=== PATIENT | male | born 1960 | race Caucasian/White ===

== ENCOUNTER → 2024-02-24 | Outpatient (CLI) | payer MEDICAID, SELFPAY ==
--- NOTE | 2024-02-24 09:27 | US_ITS ---
STUDY: ABDOMINAL ULTRASOUND - RIGHT UPPER QUADRANT; ELASTOGRAPHY REASON FOR VISIT: Male, 63 years old. Hepatitis C. Cirrhosis. TECHNIQUE: Ultrasound evaluation of the right upper quadrant was performed with real-time and static olivas-scale imaging. Point quantification shear wave elastography was performed ([place]). TECHNICAL QUALITY: Adequate. COMPARISON: None. FINDINGS: Liver: The liver measures 15 cm. There is increased echogenicity consistent with fatty infiltration. The bile ducts are within normal limits. There is hepatic color flow. The direction of portal flow is hepatopetal. There is no demonstrated mass lesion. Median liver stiffness measured 13 kPa. Gallbladder: Normal distended gallbladder. The gallbladder wall measures 4 mm. There is a negative sonographic May''s sign. There is no pericholecystic fluid. There are multiple echogenic structures within the gallbladder, consistent with multiple gallstones. Common Bile Duct (C.B.D.): The common bile duct measures 4 mm. Pancreas: There is normal echogenicity of the visualized pancreas. There is no demonstrated pancreatic mass or cyst. Right Kidney: Normal size of the right kidney. The right kidney measures 11.4 cm x 6.2 cm x 5.3 cm. Normal renal cortex. The right cortex measures 1.6 cm. There is no demonstrated renal mass or cyst. There is no right hydronephrosis. IMPRESSION: 1. Liver stiffness measures 13 kPa compatible with F3-F4 (Moderate to severe liver fibrosis) Metavir score. Electronically Signed: Wilmar Pearson MD at 15:33 EDT , STUDY: ABDOMINAL ULTRASOUND - LEFT UPPER QUADRANT REASON FOR EXAM: Male, 63 years old. HEP C cirrhosis -- including spleen, NAFLD TECHNIQUE: Transabdominal ultrasound was performed with real-time and static olivas scale imaging. TECHNICAL QUALITY: Adequate. COMPARISON: None. FINDINGS: Spleen: Normal size of the spleen. The spleen measures 12.6 cm x 5.7 cm x 5.3 cm. US/ABD Limited w/ Elastography IMPRESSION: Normal left upper quadrant abdominal ultrasound examination. Electronically Signed: Wilmar Pearson MD at 15:33 EDT ,
== END | disposition home or self-care (01) ==
LOC: US 09:25
PROVIDERS: Referring Provider Internal Medicine; Visit Provider Internal Medicine
DX: K74.60 Unspecified cirrhosis of liver (principal); E66.01 Morbid (severe) obesity due to excess calories; B18.2 Chronic viral hepatitis C
CPT/HCPCS: 76705; 76981

== ENCOUNTER 2024-03-20 05:53 | Day surgery (SDC) | payer MEDICAID, SELFPAY ==
[2024-03-20] VITALS (8 sets, daily range): BP systolic 107–163; BP diastolic 70–87; PULSE 68–82; RESP 16; TEMP 36.2–36.8; O2SAT 92–98; BMI 34.1
[2024-03-20] MEDS: Lactated Ringers 1,000 ML 15 ML IV (06:22)
--- NOTE | 2024-03-20 06:37 | PRE.ANES_ITS ---
ASA Classification* ASA Classification ASA Classification: 3 Assessment & Plan Anesthesia* Anesthesia Assessment Anesthesia Assessment: Discussed sedation and/or anesthesia options, risks, benefits, and alternatives with patient/parents/legal guardian/POA. Questions invited. The patient/parents/legal guardian/POA seems to understand and agrees to proceed with anesthesia plan. Reviewed the physical assessment, medical history, allergy history and patient home medications list prior to surgery/procedure/anesthetic and documented any changes. Performed airway and anesthesia risk assessments. 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 When Was Last Pacemaker Check QUESTION #4 FULL TEXT: You/Your Family Experience fever (hyperthermia) with Anesthesia Last Oral Intake Last Oral intake: Last Oral Intake NPO since 22:00 03/20/24 06:14 Meds taken in AM with sips of water? 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 Female No 03/15/24 10:23 HX of Motion Sickness No 03/15/24 10:23 HX of N/V After Surgery No 03/15/24 10:23 Non-Smoker Yes 03/15/24 10:23 Duration of Surgery greater No 03/15/24 10:23 than 60 minutes Number of Risk Factors 1 03/15/24 10:23 PONV Score Low Risk 03/15/24 10:23 Height & Weight Height & Weight: Anesthesia: Height & Weight Height 5 ft 11 in 03/20/24 06:14 Weight: 111 kg 03/20/24 06:14 Body Mass Index (BMI) 34.1 03/20/24 06:14 Respiratory Assessment Respiratory Assessment - 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 Has anyone observed you stop No 03/15/24 10:23 breathing during sleep? STOP Results Negative 03/15/24 10:23 QUESTION #5 FULL TEXT : Do you snore loudly (louder than talking or can be heard through closed doors)? 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 Specify any problems Hx of Preganancy in last 3 N/A 03/15/24 10:23 Months Nurse Filling Out Transfusion NBUCHER 03/15/24 10:23 & Questions: Date: 03/15/24 03/15/24 10:23 Time: 10:24 03/15/24 10:23 Patient unable to answer at this time (ie. 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: /Reproductive Hx- dusting and brushing machine operator Hx Now No 03/15/24 10:23 Gestational Age (in weeks): EDC: Hx Hx Para Hx Section SAB Active Medications Active Medications: Current Medications Generic Name Dose Route Start Last Admin Trade Name Freq PRN Reason Stop Dose Admin Lactated Ringer's 1,000 mls @ 15 mls/hr 03/20/24 06:00 03/20/24 06:22 IV 15 mls/hr .Q48H IRENE Administration PFSH Medical History Loss of hearing No natural teeth Thyroid disease Arthritis Cirrhosis Migraine headache Hepatitis Leg cramps History of edema Former smoker Umbilical hernia Home Medications ?Medication ?Instructions ?Recorded ?Last Taken ?Type NK 03/15/24 Unknown History Allergy/AdvReac Type Severity Reaction Status Date / Time No Known Allergies Allergy Verified 03/20/24 06:12 Surgical History History of carpal tunnel surgery H/O inguinal hernia repair H/O left knee surgery Social History Smoking Status: Current every day smoker tobacco type: cigarettes Review of Systems (Anesthesia) ROS Narrative System reviewed and no additional complaints, except as documented.
--- NOTE | 2024-03-20 07:00 | IMM_PTH ---
PATIENT: CONRADO SHANKAR LOC: EN U#:[id number] AGE/SX: 63/M ROOM: RE03/20/[address]: Dr. Branden Velázquez DO : 1960 BED: DIS: 03/20/2024 SPEC #: [id number] RECD: 03/20/24 13:44 STATUS: STANLEY RESharron #: [id number] REMBERTO: 03/20/24 07:[address]: Branden Velázquez DEPT: IMMUNOHISTOCHEMISTRY RECD BY: Mehran Cesar ENTERED: 03/20/24 13:44 SP TYPE: IMMUNO OTHR DR: Dr. Westley Grossman DO Tissues: A - Gastric mucous membrane B - Esophagus, NOS Procedures: H Pylori (initial) PHYSICIAN & INSTITUTION [place] [id number] SPECIMEN INFORMATION: Tissue Source: A- Gastric cardia biopsy, B- Distal esophagus biopsy Clinical Info: Hepatic cirrhosis due to chronic hepatitis C infection, morbid obesity Specimen Number: [id number] A, B CPT code: 64876l6 METHODOLOGY: Deparaffinized sections of prefer/formalin-fixed tissue or PAP/DQ stained slides are incubated with monoclonal/polyclonal antibodies/oligonucleotide probes. Localization is made via biotin free immunoperoxidase method. Appropriate controls are performed and reacted as expected. Results on target cell population are indicated in the following table: RESULTS: ANTIBODY / CLONE RESULT Block A H Pylori (polyclonal) positive Block B H Pylori (polyclonal) positive These tests were developed and their performance characteristics determined by [facility]. They may not have been cleared or approved by the U.S. Food and Drug Administration. The FDA has determined that such clearance or approval is not necessary. The above immunohistochemical/dualISH markers are ordered and reviewed by the Pathologist. INTERPRETATION: A. Gastric cardia, biopsy: Positive for Helicobacter pylori organisms. B. Distal esophagus, biopsy: Positive for numerous Helicobacter pylori organisms. SUNNY/ 03/22/2024
--- NOTE | 2024-03-20 07:00 | EGD_PTH ---
PATIENT: CONRADO SHANKAR LOC: EN U#:[id number] AGE/SX: 63/M ROOM: RE03/20/[address]: Dr. Branden Velázquez DO : 1960 BED: DIS: 03/20/2024 SPEC #: [id number] RECD: 03/20/24 12:40 STATUS: STANLEY SUSAN #: [id number] REMBERTO: 03/20/24 07:[address]: Branden Velázquez DEPT: SURGICAL PATHOLOGY RECD BY: Brooke Lin ENTERED: 03/20/24 13:16 SP TYPE: EGD BIOPSY ROCIO DR: Dr. Westley Grossman DO Tissues: A - Gastric mucous membrane B - Esophagus, NOS Procedures: Special Stain Group I Surgery Specimen Level IV Alcian Blue/PAS (control) HEADER OPERATION: EGD with biopsies PRE-OP DIAGNOSIS: Hepatic cirrhosis due to chronic hepatitis C infection, morbid obesity TISSUE SUBMITTED: A- Gastric cardia biopsy, B- Distal esophagus biopsy MICROSCOPIC DIAGNOSIS A. Gastric cardia, biopsy: Moderate to marked chronic active gastritis. Focal intestinal metaplasia (goblet cell metaplasia). See comment. B. Distal esophagus, biopsy: A fragment of gastroesophageal mucosa with moderate to marked chronic inflammation and minimal acute inflammation. Intestinal metaplasia (goblet cell metaplasia) not identified. See comment. SUNNY/mr 03/21/2024 COMMENT A, B. The results of immunohistochemistry for Helicobacter pylori will be reported separately ([id number]). Alcian blue/PAS stain with matched control is used in the evaluation of the specimens. Case has been reviewed in consultation with Dr. Gillespie who concurs with the above diagnosis. IDC:AM MICROSCOPIC DESCRIPTION Slides are reviewed. GROSS DESCRIPTION A. Received in fixative is one container labeled with the patient's name and designated Gastric cardia biopsy. The specimen consists of two irregular fragments of light anderson soft tissue that in aggregate measure 0.6 x 0.3 x 0.1 cm. The specimen is totally submitted in one cassette. B. Received in fixative is one container labeled with the patient's name and designated Distal esophagus biopsy. The specimen consists of one irregular fragment of light anderson soft tissue that measures 0.3 x 0.3 x 0.1 cm. The specimen is totally submitted in one cassette. Kerry 03/20/2024 TC:2 CPT:78688r4,70289h5
--- NOTE | 2024-03-20 07:00 | PCM.HP.BLA ---
History and Physical Date of Admission: 03/20/24 Chief Complaint: Hep B Details: CONRADO SHANKAR, is a 63 M who presents to the office today for OV 02.11.24 F/U from hospital admit 02.04.24 for signs of inflammation, positive hepatitis C, hernia and cirrhosis of liver. Pt states he is feeling fine. Taking levothyroxine. Patient went to [place] outpatient on 02/04/2024 for left lower quadrant abdominal pain after moving heavy boxes. Patient was found abnormal LFT and found to have hep C positive. Patient was sent to the liver clinic. Patient has PCP. He had bilateral inguinal hernia repair in the past. He also had arthroscopy of left knee probably for torn meniscus. Patient denies history of right upper quadrant abdominal pain, jaundice, hematemesis, melena or encephalopathic symptoms. Patient stated he has hep C probably from blood transfusion he had in 1984. Patient history of occasional alcohol drink in the past but quit in September 1999. Patient also had history of smoking less than a pack started in teenage and quit in January 2022. Denies history of substance use. ROS Const Constitutional: No fatigue, fever(s), weakness or weight change ENT ENT: No difficulty swallowing Resp Respiratory: No shortness of breath or wheezing Cardio Cardiology: No chest pain at rest or dyspnea on exertion Gastro GI: No abdominal pain, belching, bloating, change in bowel habits, change in stool character, coffee ground emesis, constipation, cramping, diarrhea, heartburn, difficulty swallowing, feeling full early, excessive flatus, incontinent of stools, Vomiting blood/hematemesis, Blood in stool, loose stools, Black,tarry stools, nausea/dyspepsia, pain with swallowing, vomiting or other Genitourinary Male: No difficulty urinating or burning urination Musc Musculoskeletal: Positive for Arthritis; No joint pain Skin Skin: No yellowing of the eye or itchy eyes Neuro Neurology: No abnormal movements, behavioral changes, weakness or lack of coordination Psych Psychiatric: No anxiety, No behavioral changes and No depression Endo Endocrine: No fatigue or weight change Aller/Imm Allergy/Immunologic: No itchy eyes or wheezing Martin/Lymp Hematologic/Lymphatic: No easy bleeding or easy bruising Exam Const General: cooperative, no acute distress and well developed Nutritional Appearance: average body habitus Orientation: alert, awake and oriented x3 HENMT Head: normocephalic and atraumatic Nose: external nose normal Face and sinus: normal facial exam Mouth: moist mucous membranes Eyes Pupils: PERRL EOM: EOM intact bilaterally Neck Neck: normal visual inspection, no meningeal signs and trachea midline Carotids: no bruits Chest Chest palpation & inspection: normal inspection of the chest Resp Effort & Inspection: normal respiratory effort and symmetric chest movement Auscultation: Bilateral: Clear to Auscultation Cardio Palpation: normal PMI Rate: regular rate Rhythm: regular rhythm Heart Sounds: S1 normal and S2 normal Other: Systolic murmur present. GI Auscultation: normal bowel sounds Percussion: normal to percussion Palpation: soft, no hepatosplenomegaly and no guarding Other: No tenderness guarding or rigidity. No rebound tenderness. No shifting dullness or fluid thrill. Liver not enlarged. Spleen not palpable. General: bimanual renal exam normal bilaterally, bladder normal to inspection and bladder normal to palpation Musc Musculoskeletal: No joint tenderness, joint redness, joint warmth or decreased range of motion Thoracic/Lumbar Spine: thor and lumb spine abnorm to inspection Other: Scar raul of left knee arthroscopic surgery. Skin General: rashes and/or lesions noted, turgor normal and no erythema Wounds: wound noted Neuro General: patient alert, patient awake, patient oriented x3 and no focal motor deficits Speech: speech normal Motor: muscle tone normal throughout Extrem General: normal exam except as noted Other: Mild bilateral pitting ankle edema 1+ Psych Appearance: grossly normal Mood: congruent mood Affect: normal affect Attitude: cooperative Assessment and Plan Assessment and Plan (1) Hepatic cirrhosis due to chronic hepatitis C infection: Status: Chronic Plan: During workup in the [place] outpatient in January 2024, CT abdomen was done which shows no acute abnormality within the abdomen or pelvis but cirrhotic liver with findings suggestive of portal venous hypertension including dilated main portal vein and recannulization of umbilical vein and dilated main portal vein. None mobile gallstone versus polyp versus inspissated mucus. Previous labs from January and September 2023 shows platelet count 138,000. Liver chemistry shows elevated ALT 219 and AST 166. Albumin 3.3. Labs also showed LDL 136. Hep C antibody reactive, HCV RNA quantitative 2,750,000 IUs/mL, 6.4 log IU per mL. Hep B surface antigen, hep B IgM are negative. Hep A IgM nonreactive. Comprehensive labs to rule out other etiologies of cirrhosis including other infectious disease including HIV, autoimmune disease, metabolic or granulomatous disease ordered. Patient was advised to get vaccinated for hepatitis A and B through his PCP. Patient will need treatment Patient will need treatment with Epclusa but prior to that will need genotype testing. If genotype 3 will need NS 5 a resistance testing because treatment is different for genotype 3. Liver ultrasound with elastography including spleen ordered. At present platelet count is normal therefore seems compensated not patient has evidence of portal hypertension with recanalization of umbilical vein. Alpha-fetoprotein ordered. Will need EGD for variceal prophylaxis and triple phase CT scan or MRI to rule out HCC as cirrhosis protocol. (2) Hepatitis C infection: Status: Chronic Qualifiers: Viral hepatitis chronicity: chronic Hepatic coma status: without hepatic coma Qualified Code(s): B18.2 - Chronic viral hepatitis C Plan: As described above (3) Morbid obesity: Status: Chronic Plan: Patient LDL is elevated and. Fasting profile ordered. Patient advised about nonalcoholic fatty liver disease/MASLD. Try to minimize the impact of other risk factors for cirrhosis. Weight loss advised. Liver ultrasound with elastography ordered. Advised low-salt diet avoiding red meat, intermittent fasting of 12 to 15 hours as measures for decrease calorie intake. Increase physical activity. Orders: I have examined the patient and the H&P has been reviewed. There are no clinical changes since date of exam.
--- NOTE | 2024-03-20 07:23 | OP.EGD_ITS ---
Patient Name: Valentin Ji Procedure Date: 03/20/2024 7:05 AM Date of : 1960 Age: 63 Procedure: Upper GI endoscopy Indications: Heartburn, Cirrhosis with suspected esophageal varices Providers: Branden Velázquez DO Referring MD: Westley Grossman Do Medicines: Monitored Anesthesia Care Patient Profile: This is a 63 year old male. Refer to note in patient chart for documentation of history and physical. Patient has symptoms of chronic epigastric abdominal pain and chronic nausea. Complications: No immediate complications. Procedure: Pre-Anesthesia Assessment: - Prior to the procedure, a History and Physical was performed, and patient medications and allergies were reviewed. The patient is competent. The risks and benefits of the procedure and the sedation options and risks were discussed with the patient. All questions were answered and informed consent was obtained. Patient identification and proposed procedure were verified by the physician in the pre-procedure area. Mental Status Examination: alert and oriented. Airway Examination: normal oropharyngeal airway and neck mobility. Respiratory Examination: clear to auscultation. CV Examination: normal. Prophylactic Antibiotics: The patient does not require prophylactic antibiotics. Prior Anticoagulants: The patient has taken no anticoagulant or antiplatelet agents. ASA Grade Assessment: III - A patient with severe systemic disease. After reviewing the risks and benefits, the patient was deemed in satisfactory condition to undergo the procedure. The anesthesia plan was to use monitored anesthesia care (MAC). Immediately prior to administration of medications, the patient was re-assessed for adequacy to receive sedatives. The heart rate, respiratory rate, oxygen saturations, blood pressure, adequacy of pulmonary ventilation, and response to care were monitored throughout the procedure. The physical status of the patient was re-assessed after the procedure. After obtaining informed consent, the endoscope was passed under direct vision. Throughout the procedure, the patient's blood pressure, pulse, and oxygen saturations were monitored continuously. The Endoscope was introduced through the mouth, and advanced to the second part of duodenum. The upper GI endoscopy was accomplished without difficulty. The patient tolerated the procedure well. Scope In: 7:10:58 AM Scope Out: 7:17:47 AM Total Procedure Duration Time 0 hours 6 minutes 49 seconds Findings: LA Grade C (one or more mucosal breaks continuous between tops of 2 or more mucosal folds, less than 75% circumference) esophagitis with bleeding was found 34 to 42 cm from the incisors. Biopsies were taken with a cold forceps for histology. Verification of patient identification for the specimen was done. Estimated blood loss was minimal. Small (< 5 mm) varices were found in the lower third of the esophagus. They were 3 mm in largest diameter. Severe portal hypertensive gastropathy was found in the entire examined stomach. Biopsies were taken with a cold forceps for histology. Verification of patient identification for the specimen was done. Estimated blood loss was minimal. Biopsies were taken with a cold forceps for Helicobacter pylori testing. Verification of patient identification for the specimen was done. Estimated blood loss was minimal. A medium amount of food (residue) was found in the gastric antrum. No gross lesions were noted in the first portion of the duodenum. Impression: - LA Grade C reflux esophagitis with bleeding. Biopsied. - Small (< 5 mm) esophageal varices. - Portal hypertensive gastropathy. Biopsied. - A medium amount of food (residue) in the stomach. - No gross lesions in the first portion of the duodenum. Recommendation: - Discharge patient to home. - Resume previous diet. - Continue present medications. - Await pathology results. - Repeat upper endoscopy in 4 months for surveillance. - Omeprazole 40 mg twice daily x 12 weeks - Gastric emptying study Procedure Code(s): --- Professional --- 34660, Esophagogastroduodenoscopy, flexible, transoral; with biopsy, single or multiple CPT copyright 2021 [employer]. All rights reserved. The codes documented in this report are preliminary and upon top lifter review may be revised to meet current compliance requirements. Branden Velázquez DO 03/20/2024 7:23:14 AM This report has been signed electronically. Number of Addenda: 0 Note Initiated On: 03/20/2024 7:05 AM
--- NOTE | 2024-03-20 07:23 | OP.CCLET_ITS ---
03/20/2024 Westley Grossman Do Re : Upper GI endoscopy procedure for Valentin Ji Dear Dr. Grossman This procedure was performed on Wednesday, March 20, 2024. My impressions and recommendations are as follows: Impressions : - LA Grade C reflux esophagitis with bleeding. Biopsied. - Small (< 5 mm) esophageal varices. - Portal hypertensive gastropathy. Biopsied. - A medium amount of food (residue) in the stomach. - No gross lesions in the first portion of the duodenum. Recommendations : - Discharge patient to home. - Resume previous diet. - Continue present medications. - Await pathology results. - Repeat upper endoscopy in 4 months for surveillance. - Omeprazole 40 mg twice daily x 12 weeks - Gastric emptying study My findings are described in the full procedure note, which is enclosed. If I can be of further assistance, please feel free to contact me at . Sincerely, Branden Velázquez DO 03/20/2024 7:23:14 AM This report has been signed electronically.
--- NOTE | 2024-03-20 07:28 | PCM.POST.ANE ---
Anesthesia: Postop Eval I Current Vital Signs Temperature: 97.1 F Pulse Rate: 82 Blood Pressure: 128/82 Respiratory Rate: 16 Pulse Ox: 93 Oxygen Delivery Method: Room Air Assessment Airway patent: Yes Spontaneous unlabored respirations: Yes Mental status: Awake and Calm nausea: No Vomiting: No Anesthesia Complication: No Fluid Hydration Crystalloid volume administer (ml): 400 Total IV fluid infused: 400 Progress Note Anesthesia document: Postop Eval 1 completed: Yes
--- NOTE | 2024-03-20 07:42 | PCM.POSTANE2 ---
Anesthesia Postop Eval I Sum Postop Eval Completion status Anesthesia document: Postop Eval 1 completed: Yes Anesthesia Postop Eval I Summary Anesthesia Postop Eval I Summary: Anesthesia Postop Eval I: Assessment Summary Airway patent Yes 03/20/24 07:29 [email or web address] Spontaneous unlabored Yes 03/20/24 07:29 [email or web address] respirations Mental status Awake,Calm 03/20/24 07:29 [email or web address] nausea No 03/20/24 07:29 [email or web address] Vomiting No 03/20/24 07:29 [email or web address] Anesthesia Postop Eval I: Fluid Summary Crystalloid volume administer 400 03/20/24 07:29 [email or web address] (ml) Colloids volume administered ( ml) Blood Product volume administered (ml) Total IV fluid infused 400 03/20/24 07:29 [email or web address] Anesthesia Postop Eval I: Summary Notes Anesthesia Complication No 03/20/24 07:29 [email or web address] Anesthesia Complication Comment: Post-operative progress note Anesthesia: Postop Eval II Evaluation Mental status: Awake and Calm Pain Level: 0 nausea: No Vomiting: No Complications Anesthesia Complication: No
[2024-03-20 08:23] LABS: Absolute Lymphocyte Count 1.87 X10^3/uL (0.83-4.51); Basophil# 0.06 X10^3/uL; Eosinophil# 0.26 X10^3/uL; Eosinophils% 4.5 % (0-5); Hematocrit 46.8 % (40-54); Hemoglobin 15.5 g/dL (13.0-16.5); Lymphocyte # 1.87 X10^3/ul (0.83-4.51); Lymphocyte % 32.3 % (19-41); Mean Corp Hgb Conc 33.1 g/dL (32-36); Mean Corpuscular Hgb 30.4 pg (27.0-32.0); Mean Corpuscular Volume 91.8 fL (80-94); Mean Platelet Vol. 10.3 fl (6.2-12.0); Monocyte% 10.4 % (0-10); NRBC Flagged by Analyzer 0 % (0-5); Neutrophil # 2.99 X10^3/uL (2.7-7.7); Neutrophil % 51.6 % (47-70); Platelet Count 118 K/mm3 (150-450); RBC Distribution Width CV 12.8 % (11.6-14.6); RBC Distribution Width SD 43.2 fl (35.1-43.9); White Blood Count 5.8 K/mm3 (4.4-11.0)
[2024-03-20 09:08] LABS: Hemoglobin A1c 5.5 % (3.8-5.6)
[2024-03-20 09:18] LABS: HIV - WCH Non-Reactive (Nonreactive); Hepatitis B Surface Antibody Non-Reactive
[2024-03-20 11:01] LABS: ALB/GLOB Ratio 0.8 RATIO (0.9-2.4); AST(SGOT) 177 U/L (15-37); Alanine Aminotransfer ALT/SGPT 189 U/L (16-61); Albumin, Serum 3.1 g/dL (3.2-5.0); Alkaline Phosphatase 114 U/L (45-117); Anion Gap 4 (5-15); BUN 14 mg/dL (7-18); BUN/Creat Ratio 16.4 RATIO (10-20); Bilirubin, Direct 0.22 mg/dL (0.00-0.30); CRP 6.15 mg/L (0.0-3.0); Calcium,Total 8.6 mg/dL (8.5-10.1); Chloride 106 mmol/L (98-107); Cholesterol 157 mg/dL (200); Creatinine, Serum 0.86 mg/dL (0.70-1.30); EST Glomerular Filtration Rate 96 mL/min (>60); Est Glom Filt Rate - Afr Amer 116 mL/min (>60); Ferritin 452 ng/mL (26-388); Globulin 3.9 g/dL (2.2-4.2); Glucose 159 mg/dL (74-106); High Density Lipoprotein 37 mg/dL; Iron 59 ug/dL (65-175); Iron Binding Capacity,Total 352 ug/dL (250-450); PERCENT IRON SATURATION 16.8 % (15.0-55.0); Potassium 3.8 mmol/L (3.5-5.1); Sodium Level 138 mmol/L (136-145); Thyroid Stim Hormone (TSH) 7.06 uIU/mL (0.358-3.74); Triglycerides 149 mg/dL; Very Low Density Lipoprotein 30 mg/dL (5-40)
[2024-03-21 14:10] LABS: ANTINUCLEAR ANTIBODIES DIRECT Positive (Negative); Anti-Centromere B Ab <0.2 AI (0.0-0.9); Anti-Chromatin 0.4 AI (0.0-0.9); Anti-Jo <0.2 AI (0.0-0.9); Anti-Mitochondrial AB <20.0 Units (0.0-20.0); Anti-Scleroderma-70 AB <0.2 AI (0.0-0.9); Anti-dsDNA Ab 21 IU/mL (0-9); RNP Ab <0.2 AI (0.0-0.9); SJOGREN'S Anti-SS-A test < 0.2 AI (0.0-0.9); SJOGREN'S Anti-SS-B test < 0.2 AI (0.0-0.9); Smith Ab <0.2 AI (0.0-0.9)
[2024-03-24 13:42] LABS: AFP, Tumor Marker 5.2 ng/mL (0.0-8.4); Albumin 3.8 g/dL (2.9-4.4); Alpha-1-Globulins 0.2 g/dL (0.0-0.4); Alpha-2-Globulins 0.5 g/dL (0.4-1.0); Anti-Smooth Muscle ABS 6 Units (0-19); CMV by PCR Negative (Negative); Ceruloplasmin 24.8 mg/dL (16.0-31.0); Copper, Serum or Plasma 93 ug/dL (69-132); Cytoplasmic Ab (C-ANCA) <1:20 titer (Neg:<1:20); GGTP 86 IU/L (0-65); Gamma Globulin 1.2 g/dL (0.4-1.8); HCV Quant. RNA PCR 3170000 IU/mL (.); HCV log 10 6.501 (.); Haptoglobin 37 mg/dL (32-363); Hepatitis C Genotype 3 (.); Immunoglobulin A 182 mg/dL (61-437); Immunoglobulin G 1403 mg/dL (603-1613); Immunoglobulin M 78 mg/dL (20-172); PROEL- TOTAL PROTEIN 6.7 g/dL (6.0-8.5); PSA, Free 0.36 ng/mL; PSA, Free % 20.7 % (.); Perinuclear Ab (P-ANCA) <1:20 titer (Neg:<1:20)
== END 2024-03-20 08:01 | disposition home or self-care (01) ==
LOC: EN 05:53 → AC 05:54
PROVIDERS: Internal Medicine; Visit Provider Internal Medicine Gastroenterology
PROC: 0DJ08ZZ Inspection of Upper Intestinal Tract, Via Natural or Artificial Opening Endoscopic (ICD-10-PCS; CPT 43235; principal; 2024-03-20 06:55)
DX: K31.A19 Gastric intestinal metaplasia without dysplasia, unspecified site (principal); K76.6 Portal hypertension; I85.00 Esophageal varices without bleeding; K74.69 Other cirrhosis of liver; E66.01 Morbid (severe) obesity due to excess calories; B18.2 Chronic viral hepatitis C; B96.81 Helicobacter pylori [H. pylori] as the cause of diseases classified elsewhere; Z79.890 Hormone replacement therapy; Z87.19 Personal history of other diseases of the digestive system; K21.01 Gastro-esophageal reflux disease with esophagitis, with bleeding; K31.89 Other diseases of stomach and duodenum; Z79.899 Other long term (current) drug therapy; K29.50 Unspecified chronic gastritis without bleeding
CPT/HCPCS: 43239; 36415; 80053; 80061; 82105; 82140; 82248; 82390; 82525; 82728; 82784; 82977; 83010; 83036; 83516; 83540; 83550; 84153; 84154; 84165; 84443; 85025; 86038; 86140; 86225; 86235; 86256; 86334; 86703; 86706; 87496; 87522; 87902; 88305; 88312; 88342; J7120; J2405

== ENCOUNTER → 2024-05-19 | Outpatient (CLI) | payer BC, SELFPAY ==
--- NOTE | 2024-05-19 10:14 | NM_ITS ---
CLINICAL: 63-year-old male with history of clinical gastroparesis. SEMI-SOLID PHASE 99m Tc SULFUR COLLOID GASTRIC EMPTYING STUDY COMPARISON: None available FINDINGS: The patient was administered 1.2 mCi of 99m Tc sulfur colloid mixed with oatmeal and consumed per os. Image acquisitions in the anterior-posterior projections were obtained for 60 minutes. There is prompt visualization of the stomach. There is no gastroesophageal reflux identified. The T ? raw data emptying was calculated to be 16.05 minutes, (Normal: 12-56 minutes). NM/Gastric Emptying Study IMPRESSION: 1. NORMAL 99m Tc sulfur colloid semi-solid phase (oatmeal) gastric emptying imaging examination. A. There is normal and preserved semi-solid phase gastric emptying Electronically Signed: Valentin Lazcano DO at 13:06 EDT ,
== END | disposition home or self-care (01) ==
PROVIDERS: Referring Provider Internal Medicine Gastroenterology; Visit Provider Internal Medicine Gastroenterology
DX: B18.2 Chronic viral hepatitis C (principal); K74.60 Unspecified cirrhosis of liver
CPT/HCPCS: 78264; A9541

== ENCOUNTER → 2025-04-12 | Outpatient (CLI) | payer BC, SELFPAY ==
[2025-04-12 11:19] LABS: Hematocrit 47.4 % (40-54); Hemoglobin 16.4 g/dL (13.0-16.5); Immature Granulocytes Count 0.010 X10^3/uL (0.0-0.0); Mean Corp Hgb Conc 34.6 g/dL (32-36); Mean Corpuscular Volume 89.4 fL (80-94); Mean Platelet Vol. 10.0 fl (6.2-12.0); NRBC Flagged by Analyzer 0 % (0-5); Platelet Count 133 K/mm3 (150-450); RBC Distribution Width CV 12.9 % (11.6-14.6); RBC Distribution Width SD 42.4 fl (35.1-43.9); Red Blood Count 5.30 M/mm3 (4.6-6.2); White Blood Count 6.4 K/mm3 (4.4-11.0)
[2025-04-12 11:26] LABS: Prothrombin Time (Protime)PT. 13.9 SECONDS (11.7-14.9)
[2025-04-12 11:52] LABS: AST(SGOT) 214 U/L (<=37); Alanine Aminotransfer ALT/SGPT 197 U/L (<=46); Albumin, Serum 3.8 g/dL (3.4-4.8); Alkaline Phosphatase 117 U/L (40-129); Anion Gap 10 (5-15); BUN 16 mg/dL (4-19); BUN/Creat Ratio 19.1 RATIO (10-20); Calcium,Total 8.8 mg/dL (7.6-11.0); Carbon Dioxide 25.0 mmol/L (21.0-32.0); Chloride 108 mmol/L (98-108); Globulin 3.4 g/dL (2.2-4.2); Glucose 113 mg/dL (70-99); Potassium 4.0 mmol/L (3.3-5.1)
[2025-04-13 15:08] LABS: ANTINUCLEAR ANTIBODIES DIRECT Positive (Negative); Anti-Chromatin 0.2 AI (0.0-0.9); Anti-Jo <0.2 AI (0.0-0.9); Anti-dsDNA Ab 28 IU/mL (0-9); SJOGREN'S Anti-SS-A test < 0.2 AI (0.0-0.9); SJOGREN'S Anti-SS-B test 0.2 AI (0.0-0.9)
[2025-04-16 13:08] LABS: HEPATITIS B SURFACE AG Negative (Negative); Hep C Antibodies Reactive (Non Reactive)
== END | disposition home or self-care (01) ==
LOC: LAB 10:21
PROVIDERS: Referring Provider Internal Medicine; Visit Provider Internal Medicine
DX: B18.2 Chronic viral hepatitis C (principal); K74.60 Unspecified cirrhosis of liver; E66.01 Morbid (severe) obesity due to excess calories
CPT/HCPCS: 36415; 80053; 80074; 82105; 85025; 85610; 86038; 86225; 86235; 86706